=== PATIENT | male | born 1970 | race Caucasian/White ===

== ENCOUNTER 2018-01-08 23:55 | Inpatient (IN) | END 2018-01-10 17:00 | disposition home or self-care (01) | DRG 603 ==

== ENCOUNTER 2018-01-11 04:29 | Emergency (ER) | END 2018-01-11 05:45 | disposition home or self-care (01) ==

== ENCOUNTER 2018-08-03 21:01 | Emergency (ER) | payer SELFPAY ==
[~2018-08-03] VITALS: Wt 71.9 kg
[~2018-08-03 21:01] MED LIST: HYDR-4011 PO; HYDR-842 PO; NAPR-985 PO; SULF1TAB31 PO
[2018-08-03 21:03] VITALS: BP 129/74; PULSE 118; RESP 19
== END 2018-08-03 23:49 | disposition left against medical advice (07) ==
LOC: E/R 21:01
DX: Z53.21 Procedure and treatment not carried out due to patient leaving prior to being seen by health care provider (principal)